=== PATIENT | male | born 2000 | race Caucasian/White ===

== ENCOUNTER → 2019-05-18 15:25 | Outpatient (CLI) | payer BC, SELFPAY ==
[2019-05-18 15:13] VITALS: BMI 29.7
--- NOTE | 2019-05-18 15:29 | RAD_ITS ---
STUDY: X-RAY - RIGHT WRIST REASON FOR EXAM: Male, 18 years old. Injury TECHNIQUE: 3 view(s) of the wrist were obtained. COMPARISON: None. FINDINGS: Normal visualized distal radius and ulna. Normal radiocarpal articulation. Normal distal radioulnar articulation. Normal carpal bones. Normal carpal articulations. Normal carpometacarpal articulation of the thumb. Normal second through fifth carpometacarpal articulations. Normal visualized metacarpal bones. The soft tissue structures are unremarkable. RAD/Wrist min 3 Views IMPRESSION: Normal x-ray examination of the wrist. Electronically Signed: Balaji Parsons DO at 23:35 EDT Tel [phone], Service support ,
== END ==
PROVIDERS: Referring Provider Orthopaedic Surgery; Visit Provider Orthopaedic Surgery
DX: M25.531 Pain in right wrist (principal)
CPT/HCPCS: 73110

== ENCOUNTER 2021-12-18 18:06 | Outpatient (CLI) | payer BC, SELFPAY ==
--- NOTE | 2021-12-18 18:15 | RAD_ITS ---
STUDY: X-RAY - LEFT FOOT CLINICAL: Male, 21 years old. lateral foot pain TECHNIQUE: 3 view(s) of the foot. COMPARISON: None. FINDINGS: BONES: No fracture demonstrated. JOINTS: No dislocation. SOFT TISSUES: Unremarkable. RAD/Foot min 3 Views IMPRESSION: Unremarkable study. Electronically Signed: Tesha Hinojosa MD at 5:26 EDT ,
== END 2021-12-18 23:59 | disposition home or self-care (01) ==
LOC: RAD 18:14
DX: M77.42 Metatarsalgia, left foot (principal)
CPT/HCPCS: 73630